=== PATIENT | female | born 1955 | race Caucasian/White ===

== ENCOUNTER → 2017-04-10 14:50 | Outpatient (CLI) | payer BC ==
[2011-02-22 07:43] VITALS: BMI 29.3
== END | disposition home or self-care (01) ==
LOC: D.MAMMO 08:00
DX: Z12.31 Encounter for screening mammogram for malignant neoplasm of breast (principal)

== ENCOUNTER 2018-12-17 08:00 | Outpatient (CLI) | payer BC ==
[2011-02-22 07:43] VITALS: BMI 29.3
== END 2018-12-17 23:59 | disposition home or self-care (01) ==
LOC: D.MAMMO 08:00
PROVIDERS: ATTEND Family Medicine
DX: Z12.31 Encounter for screening mammogram for malignant neoplasm of breast (principal)

== ENCOUNTER 2020-05-04 08:30 | Outpatient (CLI) | payer BC ==
[2011-02-22 07:43] VITALS: BMI 29.3
== END 2020-05-04 23:59 | disposition home or self-care (01) ==
LOC: D.MAMMO 08:30
PROVIDERS: ATTEND Family Medicine
DX: Z12.31 Encounter for screening mammogram for malignant neoplasm of breast (principal)